=== PATIENT | female | born 1995 ===

== ENCOUNTER 2024-12-11 04:59 | Emergency (ER) | payer OTHER, MEDICAID ==
[~2024-12-11] VITALS: Ht 165.1 cm; Wt 56.0 kg
[2024-12-11 05:00] VITALS: BP 114/64; PULSE 96; RESP 18; TEMP 98.3; O2SAT 99
== END 2024-12-11 06:52 | disposition left against medical advice (07) ==
LOC: ER 04:59
DX: R06.02 Shortness of breath (principal); Z53.21 Procedure and treatment not carried out due to patient leaving prior to being seen by health care provider